=== PATIENT | male | born 1965 | race Caucasian/White ===

== ENCOUNTER 2016-07-16 17:16 | Inpatient (IN) | payer MEDICARE, OTHER ==
[~2016-07-16] VITALS: Ht 172.7 cm; Wt 117.9 kg
--- NOTE | 2016-07-16 21:45 | NUR ---
GPS/RN NOTE: ADMITTED A 51 YEAR OLD MALE DIRECTLY FROM [facility] BROUGHT IN BY MOTHER, ARRIVED TO THE UNIT AROUND 2145 ACCOMPANIED BY PARAMEDICS. PATIENT ADMITTED ON 5150 HOLD FOR GD AND DTO. THE 5150 HOLD WAS REVIEWED AND APPEARS TO REFLECT THE PRESENTATION OF THE PATIENT. PER HOLD PATIENT DECLINED IN ABILITY TO CARE FOR HIMSELF, DEMONSTRATES BIZARRE BEHAVIOR, RESPONDING TO INTERNAL STIMULI, HIS MOTHER DOES NOT FEEL SAFE WITH HIM DUE TO WORSENING OF HIS PSYCHIATRIC SYMPTOMS. AWAKE, ALERT, ORIENTED X2, CONFUSED. SHOWS NO S/S OR PAIN AT THIS TIME. RESPIRATION EVEN, BREATHING PATTERN NON-LABORED WITH EQUAL RISE AND FALL OF THE CHEST. SKIN HAS SCABS NOTABLY, PHOTOS TAKEN. PATIENT IS UNDER THE CARE OF DR. FERNANDEZ AND UNDER THE CARE OF DR. SANTIAGO. BELONGINGS WERE INVENTORIED AND CHECKED FOR CONTRABAND. PATIENT'S ADVANCED DIRECTIVE PREFERENCE, IMMUNIZATION QUESTIONNAIRES, VALUABLES WERE CHECKED IN TO SAFE AND NECESSARY PAPERWORK COMPLETED. PATIENT'S BED LOCKED AND PLACED ON LOWEST POSITION. WILL CONTINUE TO MONITOR Q 15 MINS. TO MAINTAIN SAFETY. MED RECON WILL BE DONE IN AM PER DR. BHAVANA COLLINS.
[2016-07-17] MEDS ORDERED: MAG HYDROX/AL HYDROX/SIMETH 30 ML UDC PO PRN (02:00)
[2016-07-17] MEDS ORDERED: MAGNESIUM HYDROXIDE 30 ML UDC PO PRN (02:00)
[2016-07-17] MEDS ORDERED: LORAZEPAM 1 MG TABLET ONE (02:58)
[2016-07-17] MEDS ORDERED: FLUT1DIS3 INH (03:10)
[2016-07-17] MEDS ORDERED: ENOX40DI SQ (03:10)
[2016-07-17] MEDS ORDERED: SERT100T PO (03:10)
[2016-07-17] MEDS ORDERED: CLON0.5T PO ×2 (03:10)
[2016-07-17] MEDS ORDERED: AMLO5TAB2 PO (03:10)
[2016-07-17] MEDS ORDERED: QUET25TA PO (07:57)
[2016-07-17] MEDS ORDERED: LURA40TA PO (07:57)
[2016-07-17 09:01] VITALS: BP 135/97
[2016-07-17] MEDS: LORAZEPAM 0.5 MG TABLET PO PRN ×2 (10:06→18:15)
--- NOTE | 2016-07-17 10:10 | NUR ---
GPS RN: PATIENT IS DELUSIONAL, ANXIOUS, KNEELING NEXT TO HIS BED, RESPONDING TO INTERNAL STIMULI. ADMINISTERED ATIVAN 1MG PO ORDERED, ORIENTED TO REALITY, PROVIDED WITH CALM AND SAFE ENVIRONMENT, CONTINUE TO MONITOR.
[2016-07-17] MEDS: QUETIAPINE FUMARATE 25 MG TABLET PO SCH ×3 (13:45→21:08)
[2016-07-17 16:00] VITALS: BP 104/73
[2016-07-17] MEDS: FLUTICASONE/SALMETEROL DISKUS IH SCH (17:41)
--- NOTE | 2016-07-17 18:15 | NUR ---
GPS RN: PATIENT C/O ANXIETY AND ASKING FOR A "TRANQUILIZER" TO HELP HIM CALM DOWN. ADMINISTERED ATIVAN 1MG PO ORDERED, VSS, CONTINUE TO MONITOR.
[2016-07-17 20:12] VITALS: BP 126/78
[2016-07-17] MEDS: ZOLPIDEM TARTRATE 5 MG TABLET PO PRN (22:04)
[2016-07-18] MEDS: LORAZEPAM 0.5 MG TABLET PO PRN (02:55)
--- NOTE | 2016-07-18 02:56 | NUR ---
GPS/RN NOTE: PATIENT FEELING ANXIOUS, UNABLE TO SLEEP, ATIVAN 1 MG TAB PO GIVEN.
[2016-07-18 07:08] LABS: ALBUMIN 3.7 g/dL (3.4-5.0); BILIRUBIN,TOTAL 0.5 mg/dL (0.2-1.0); CALCIUM, SERUM 9.1 mg/dL (8.5-10.1); CREATININE 0.9 mg/dL (0.6-1.3); POTASSIUM 3.7 mmol/L (3.5-5.1); TOTAL PROTEIN, SERUM 7.5 g/dL (6.4-8.2)
[2016-07-18 08:00] VITALS: BP 128/91
[2016-07-18] MEDS: AMLODIPINE BESYLATE 5 MG TABLET PO SCH (09:42)
[2016-07-18] MEDS: SERTRALINE HCL 50 MG TABLET PO SCH (09:42)
[2016-07-18] MEDS: QUETIAPINE FUMARATE 25 MG TABLET PO SCH ×4 (09:43→21:49)
[2016-07-18] MEDS: FLUTICASONE/SALMETEROL DISKUS IH SCH ×2 (10:33→16:44)
[2016-07-18 16:11] VITALS: BP 126/94
[2016-07-18 19:57] VITALS: BP 127/83
[2016-07-18] MEDS: ZOLPIDEM TARTRATE 5 MG TABLET PO PRN (21:49)
--- NOTE | 2016-07-19 00:13 | NUR ---
Pt has been paranoid, hypervigilant, & unpredictable but compliant with care.
[2016-07-19 07:47] LABS: BASOPHILS % (AUTO) 0.4 % (0.0-2.0); EOSINOPHILS % (AUTO) 0.1 % (0.0-6.0); HEMATOCRIT 42 % (39-51); HEMOGLOBIN 13.8 g/dL (13.5-17.5); LYMPHOCYTES % (AUTO) 14.9 % (20.0-44.0); MEAN CORPUSCULAR HEMOGLOBIN 31 PG (26.0-33.0); MEAN CORPUSCULAR HGB CONC 33 g/dl (31.0-36.0); MEAN CORPUSCULAR VOLUME 92 fL (80-96); MONOCYTES # (AUTO) 0.5 /CMM (0.1-1.30); MONOCYTES % (AUTO) 7.9 % (2.0-12.0); NEUTROPHILS # (AUTO) 5.2 /CMM (1.8-8.9); NEUTROPHILS % (AUTO) 76.7 % (43.0-81.0); PLATELET COUNT (AUTO) 148 /CMM (150-450); RDW COEFFICIENT OF VARIATION 17.2 (11.5-15.0); RED BLOOD CELL COUNT(AUTO) 4.55 MIL/uL (4.5-6.0); WHITE BLOOD COUNT (AUTO) 6.8 K/uL (4.3-11.0)
[2016-07-19 08:00] VITALS: BP 130/81
[2016-07-19 08:02] LABS: ALBUMIN 3.3 g/dL (3.4-5.0); BILIRUBIN,DIRECT 0.1 mg/dL (0.0-0.2); BILIRUBIN,TOTAL 0.5 mg/dL (0.2-1.0); CALCIUM, SERUM 8.5 mg/dL (8.5-10.1); CREATININE 0.9 mg/dL (0.6-1.3); TOTAL PROTEIN, SERUM 6.8 g/dL (6.4-8.2)
[2016-07-19] MEDS: SERTRALINE HCL 50 MG TABLET PO SCH (08:16)
[2016-07-19] MEDS: AMLODIPINE BESYLATE 5 MG TABLET PO SCH (08:16)
[2016-07-19] MEDS: FLUTICASONE/SALMETEROL DISKUS IH SCH ×2 (08:17→16:43)
[2016-07-19] MEDS: QUETIAPINE FUMARATE 25 MG TABLET PO SCH ×3 (08:33→16:39)
--- NOTE | 2016-07-19 15:45 | NUR ---
Initial discharge plan: Pt. states he lives with his mother, Nathalie [phone] at [address] [facility] [address] and would like to return home when discharged. SW will follow up with MD and mother and will help form safe and proper discharge.
[2016-07-19 16:00] VITALS: BP 130/87
[2016-07-19 19:59] VITALS: BP 123/60
[2016-07-20 08:10] VITALS: BP 113/60
[2016-07-20] MEDS: SERTRALINE HCL 50 MG TABLET PO SCH (08:10)
[2016-07-20] MEDS: AMLODIPINE BESYLATE 5 MG TABLET PO SCH (08:11)
[2016-07-20] MEDS: QUETIAPINE FUMARATE 25 MG TABLET PO SCH (08:11)
[2016-07-20] MEDS: FLUTICASONE/SALMETEROL DISKUS IH SCH ×2 (08:16→16:02)
--- NOTE | 2016-07-20 11:14 | NUR ---
KATYA spoke with pt's mother, Nathalie [phone] who mentioned that she is coming to visit and [facility] that she needs to have the doctor sign as she wants to be able to make decisions for her son. She mentioned that [facility] gave her the paperwork and told her that the doctor here would need to sign it. SW will wait for Nathalie to come to go over the paperwork.
--- NOTE | 2016-07-20 12:00 | NUR ---
[id number]: NOTIFIED DR. URRUTIA ABOUT LAB RESULTS FOR 07/19/16: ALBUMIN=3.3 , AST= 41, RDW COEFF OF ROSHAN= 17.2, PLT. COUNT= 148, LYMPH %= 14.9. NO NEW ORDERS GIVEN AT THIS TIME
[2016-07-20] MEDS: QUETIAPINE FUMARATE 100 MG TABLET PO SCH ×3 (12:47→20:30)
[2016-07-20 20:10] VITALS: BP 136/92
[2016-07-20] MEDS: LORAZEPAM 0.5 MG TABLET PO PRN (20:30)
[2016-07-20] MEDS: ACETAMINOPHEN 325 MG TABLET PO PRN (23:03)
[2016-07-20] MEDS: ZOLPIDEM TARTRATE 5 MG TABLET PO PRN (23:04)
[2016-07-21 08:00] VITALS: BP 141/97
[2016-07-21] MEDS: QUETIAPINE FUMARATE 100 MG TABLET PO SCH ×4 (08:55→21:11)
[2016-07-21] MEDS: FLUTICASONE/SALMETEROL DISKUS IH SCH ×2 (08:56→17:15)
[2016-07-21] MEDS: AMLODIPINE BESYLATE 5 MG TABLET PO SCH (08:56)
[2016-07-21] MEDS: SERTRALINE HCL 50 MG TABLET PO SCH (08:56)
[2016-07-21 16:00] VITALS: BP 131/84
[2016-07-21] MEDS ORDERED: diphenhydrAMINE HCL 50 MG/ML VIAL IM STA (20:03)
[2016-07-21 20:04] VITALS: BP 141/71
--- NOTE | 2016-07-21 20:05 | NUR ---
GPS/RN NOTE: PATIENT PACING, RESTLESS, DISORGANIZED, CONFUSED, LISTENING TO INTERNAL STIMULI, DOES NOT RESPOND WHEN ENGAGED. PAGED DR. FERNANDEZ. ORDERED BENADRYL 25 MG IM X1 WITH HALDOL 5 MG IM X 1 STAT.
[2016-07-21 20:15] VITALS: BP 143/89
--- NOTE | 2016-07-21 20:26 | NUR ---
GPS/RN NOTE: BENADRYL 25 MG IM X1 AND HALDOL 5 MG IM X1 GIVEN.
[2016-07-21] MEDS ORDERED: HALOPERIDOL LACTATE INJ 5 MG/ML VIAL IM ONE (20:30)
--- NOTE | 2016-07-22 01:05 | NUR ---
GPS/RN NOTE: PATIENT UNABLE TO SLEEP, AMBIEN 5 MG TAB PO GIVEN @0109.
[2016-07-22] MEDS: ZOLPIDEM TARTRATE 5 MG TABLET PO PRN (01:09)
[2016-07-22] MEDS: LORAZEPAM 0.5 MG TABLET PO PRN ×2 (05:42→23:56)
--- NOTE | 2016-07-22 05:43 | NUR ---
GPS/RN NOTE: PATIENT STILL UP AMBULATING, CONFUSED, RESTLESS, ATIVAN 1 MG AB PO GIVEN.
[2016-07-22 08:00] VITALS: BP 139/76
[2016-07-22] MEDS: SERTRALINE HCL 50 MG TABLET PO SCH (08:29)
[2016-07-22] MEDS: QUETIAPINE FUMARATE 100 MG TABLET PO SCH ×2 (08:29→21:45)
[2016-07-22] MEDS: AMLODIPINE BESYLATE 5 MG TABLET PO SCH (08:30)
[2016-07-22] MEDS: FLUTICASONE/SALMETEROL DISKUS IH SCH ×2 (08:32→17:00)
--- NOTE | 2016-07-22 12:03 | NUR ---
KATYA spoke with pt's mother, Nathalie [phone] who was worried about having the patient discharge soon and told SW about pt's history of psychiatric hospitalizations in the recent months, and had to be explained again that conservatorship may not be proceeded as pt. does not seem to meet the criteria for it at this point. She did have some concerns that she wanted to inform the MD about and SW reassured her that the information will be provided to the psychiatrist.
[2016-07-22] MEDS: risperiDONE-M 0.5 MG TAB.RAPDIS PO SCH ×2 (13:19→17:00)
[2016-07-22 16:00] VITALS: BP 150/63
[2016-07-23 08:00] VITALS: BP 110/77
[2016-07-23] MEDS: FLUTICASONE/SALMETEROL DISKUS IH SCH ×2 (09:00→16:44)
[2016-07-23] MEDS: AMLODIPINE BESYLATE 5 MG TABLET PO SCH (09:00)
[2016-07-23] MEDS: risperiDONE-M 0.5 MG TAB.RAPDIS PO SCH ×2 (09:00→16:45)
[2016-07-23 16:03] VITALS: BP 112/69
[2016-07-23 20:00] VITALS: BP_SYST 111; BP_SYST 134; BP_DIAS 69; BP_DIAS 88
[2016-07-23] MEDS: LORAZEPAM 0.5 MG TABLET PO PRN (22:23)
[2016-07-23] MEDS: QUETIAPINE FUMARATE 100 MG TABLET PO SCH (22:23)
--- NOTE | 2016-07-24 05:20 | NUR ---
PT IN THE ROOM, ANXIOUS, KNEEL ON HIS KNEES, DRAGGING HIS KNEES ON THE FLOOR. FOR NO APPARENT REASON. NOTED SKIN TEAR ON BOTH KNEES. WOUND TREATMENT PROVIDED. WOUND CONSULT TRIGGERED. WILL CONTINUE TO MONITOR FOR SAFETY.
--- NOTE | 2016-07-24 06:39 | NUR ---
INFORMED AND SPOKE TO ELISA (MOTHER) REGARDING THE INCIDENT. WILL ENDORSE TO NEXT SHIFT NURSE FOR CONTINUITY OF CARE.
[2016-07-24] MEDS: risperiDONE-M 0.5 MG TAB.RAPDIS PO SCH (09:21)
[2016-07-24] MEDS: FLUTICASONE/SALMETEROL DISKUS IH SCH ×2 (09:25→17:00)
[2016-07-24] MEDS: AMLODIPINE BESYLATE 5 MG TABLET PO SCH (09:25)
--- NOTE | 2016-07-24 11:12 | NUR ---
DR. HENDRICKS GAVE AN ORDER FOR THE DENIAL RIGHTS FOR ROOM SEARCH TO LOOK FOR THE MISSING CORDLESS PHONES.
[2016-07-24] MEDS ORDERED: diphenhydrAMINE HCL 25 MG CAPSULE PO ONE (11:30)
--- NOTE | 2016-07-24 11:40 | NUR ---
PT. IS HIGHLY AGITATED, RUNNING AROUND THE HALLWAY AND OPENING THE DOORS. NOTIFIED DR. HENDRICKS AND ORDERED ZYPREXA 10 MG IM X1.
[2016-07-24] MEDS ORDERED: OLANZAPINE 10 MG VIAL IM ONE (12:00)
[2016-07-24] MEDS ORDERED: risperiDONE-M 0.5 MG TAB.RAPDIS PO ONE (13:00)
[2016-07-24 16:19] VITALS: BP 144/98
[2016-07-24 20:00] VITALS: BP 133/90
[2016-07-24] MEDS: QUETIAPINE FUMARATE 100 MG TABLET PO SCH (22:32)
[2016-07-24] MEDS: LORAZEPAM 0.5 MG TABLET PO PRN (22:32)
[2016-07-25 08:00] VITALS: BP 150/76
[2016-07-25] MEDS: LORAZEPAM 0.5 MG TABLET PO PRN (08:40)
[2016-07-25] MEDS: FLUTICASONE/SALMETEROL DISKUS IH SCH ×2 (08:41→17:03)
[2016-07-25] MEDS: AMLODIPINE BESYLATE 5 MG TABLET PO SCH (08:41)
[2016-07-25] MEDS: risperiDONE-M 0.5 MG TAB.RAPDIS PO SCH ×2 (12:34→17:02)
[2016-07-25] MEDS ORDERED: risperiDONE-M 0.5 MG TAB.RAPDIS PO SCH (13:00)
[2016-07-25 16:00] VITALS: BP 122/66
[2016-07-25 20:13] VITALS: BP 128/81
[2016-07-25] MEDS: QUETIAPINE FUMARATE 100 MG TABLET PO SCH (21:52)
--- NOTE | 2016-07-26 01:05 | NUR ---
Pt has been quite disorganized, blunted, anxious, mentally preoccupied, & flat in his affect but med compliant w/o any promptings.
[2016-07-26 08:00] VITALS: BP 130/81
[2016-07-26] MEDS: AMLODIPINE BESYLATE 5 MG TABLET PO SCH (08:18)
[2016-07-26] MEDS: risperiDONE-M 0.5 MG TAB.RAPDIS PO SCH ×2 (08:18→16:20)
[2016-07-26] MEDS: FLUTICASONE/SALMETEROL DISKUS IH SCH ×2 (08:20→16:57)
--- NOTE | 2016-07-26 10:39 | NUR ---
SW spoke with psychiatrist, pt. is doing better and can be discharged tomorrow. Pt's mother, Nathalie [phone] has been notified.
--- NOTE | 2016-07-26 14:42 | NUR ---
WOUND CARE CONSULT: PATIENT SEEN AND SKIN ASSESSMENT DONE. PATIENT ALERT, AMBULATORY, CONTINENT, PRANAY 20. SEE TODAY'S SKIN ASSESSMENT IN PCS ALONG WITH RECOMMENDATIONS DISCUSSED WITH NURSING STAFF INCLUDING MOISTURE PROTECTION. IN AGREEMENT WITH PLAN OF CARE. Addendum: 07/26/16 at 1443 by AILEEN FIORE WNDNU Amended: Links added.
[2016-07-26] MEDS ORDERED: Z GUARD REMEDY 2 OZ OINT TP PRN (15:00)
[2016-07-26 16:00] VITALS: BP 128/83
[2016-07-26] MEDS: NEOMY SULF/BACITRAC ZN/POLY 15 GM TUBE TP SCH (16:58)
[2016-07-26] MEDS: Z GUARD REMEDY 2 OZ OINT TP SCH ×2 (17:16→18:00)
--- NOTE | 2016-07-26 17:24 | NUR ---
Discharge note: Pt will discharge back home on 07/27/16 with mother, Nathalie [phone] at [address] [facility] [address] and mother will supervisor opening and picking at 12:00PM. Pt. needs RX. Pt. denies suicidal/homicidal ideations at this time and agrees with discharge plan. Pt. was provided with a resource to [facility]: [facility] [address] [place] [address] . Discharge paperwork should be signed.
--- NOTE | 2016-07-26 20:08 | NUR ---
GPS/RN NOTE: REEIVED IN BED, QUIET, CALM, NO ACUTE DISTRESS NOTED. BREATHING PATTERN NON-LABORED. NO COMPLAINTS MADE AT THIS TIME. CALM AND QUIET MOOD.
[2016-07-26] MEDS: QUETIAPINE FUMARATE 100 MG TABLET PO SCH (21:08)
[2016-07-26 21:31] VITALS: BP 131/93
[2016-07-27] MEDS: Z GUARD REMEDY 2 OZ OINT TP SCH (06:18)
[2016-07-27] MEDS: risperiDONE-M 0.5 MG TAB.RAPDIS PO SCH (07:58)
[2016-07-27] MEDS: AMLODIPINE BESYLATE 5 MG TABLET PO SCH (08:16)
[2016-07-27] MEDS: FLUTICASONE/SALMETEROL DISKUS IH SCH (08:18)
[2016-07-27] MEDS: NEOMY SULF/BACITRAC ZN/POLY 15 GM TUBE TP SCH (08:18)
[2016-07-27 08:27] VITALS: BP 133/84
[2016-07-27] MEDS: ACETAMINOPHEN 325 MG TABLET PO PRN (11:33)
--- NOTE | 2016-07-27 11:48 | NUR ---
Provided mother with an authorization for use and disclosure of health information form. She stated that she will go to a notary and have the patient fill it out in his presence so that mother is able to obtain information. Stated that with patient's written authorization, she can obtain information about patient through medical records. She stated that she will contact patient's assigned geriatric social worker Linda if she has any questions. SW provided mother with telephone number to medical records ([phone])
--- NOTE | 2016-07-27 12:53 | NUR ---
GPS/RN PATIENT CLEARED FOR DISCHARGE HOME BY DR FERNANDEZ. ALL DISCHARGE PAPER WORK EXPLAINED TO PATIENT AND FAMILY. PSYCHIATRIC PRESCRIPTIONS FAXED TO PATIENTS HOME PHARMACY PER FAMILY REQUEST. MOTHER OF PATIENT STATED SHE DOES NOT NEED PRESCRIPTION FOR MEDICAL MEDICATIONS, STATED SHE HAS SUPPLY OF MEDICATIONS AT HOME. PARALEGAL INSTRUCTOR LUZ MARINA MADE AWARE THAT NO PRESCRIPTIONS ARE REQUIRED AT THIS TIME. BELONGINGS RETURNED AND SIGNED FOR,PSYCHIATRIC TREATMENT PLANS MET, PATIENT DENIES SI/HI/AH AT TIME OF DISCHARGE,AND INSTRUCTED TO GO TO NEAREST ER IF DEVELOPING SI/HI. LEFT UNIT WITH MOTHER AND TUBE CARRIER AT SIDE, CALM, COOPERATIVE, STABLE CONDITION, NO DISTRESS NOTED.
== END 2016-07-27 12:45 | disposition home or self-care (01) | DRG 885 ==
LOC: GPS 21:36
PROVIDERS: ADMIT Psychiatry & Neurology Psychiatry; ATTEND Internal Medicine
DX: F20.0 Paranoid schizophrenia (principal); I10 Essential (primary) hypertension; F32.9 Major depressive disorder, single episode, unspecified; F29 Unspecified psychosis not due to a substance or known physiological condition; Z79.899 Other long term (current) drug therapy
CPT/HCPCS: 36415; 80048-TC; 80053-TC; 80076-TC; 85025-TC; 87081-TC; J1200; J1630; J3490